=== PATIENT | male | born 1990 | race Caucasian/White ===

== ENCOUNTER 2017-10-31 07:17 | Emergency (ER) | payer OTHER | END 2017-10-31 07:44 | disposition home or self-care (01) | LOC: FTE 07:17 | DX: H92.01 Otalgia, right ear (principal) | CPT/HCPCS: 99283; Z7502 ==

== ENCOUNTER 2017-11-02 11:28 | Emergency (ER) | payer OTHER | END 2017-11-02 12:41 | disposition home or self-care (01) | LOC: FTE 11:28 | DX: H92.01 Otalgia, right ear (principal) | CPT/HCPCS: 99283; Z7502 ==

== ENCOUNTER 2018-01-09 21:09 | Emergency (ER) | payer OTHER ==
[2018-01-09] MEDS: KETOROLAC 60 MG INJ IM (22:48)
== END 2018-01-10 00:30 | disposition home or self-care (01) ==
LOC: FTE 01-10 00:30
DX: R51 Headache (principal)
CPT/HCPCS: 96372; 99284-25

== ENCOUNTER 2018-01-18 17:07 | Emergency (ER) | payer OTHER ==
[2018-01-18] MEDS: ACETAMINOPHEN 500 MG TAB PO (17:47)
[2018-01-18] MEDS: ONDANSETRON (ODT) 4 MG TAB ODT (17:47)
[2018-01-18] MEDS: LOPERAMIDE 2 MG CAP PO (18:04)
== END 2018-01-18 18:32 | disposition home or self-care (01) ==
LOC: FTE 17:07
DX: R19.7 Diarrhea, unspecified (principal); R11.0 Nausea
CPT/HCPCS: 87400; 99283